=== PATIENT | female | born 1990 | race Caucasian/White ===

== ENCOUNTER 2017-10-01 19:17 | Emergency (ER) | payer BC ==
[2017-10-01] MEDS ORDERED: DEXAMETHASONE 10 MG/ML VIAL ONE (20:15)
--- NOTE | 2017-10-01 21:46 | ER ---
Nurse's Notes [facility] Name: Fabiola Lemus Age: 26 yrs Sex: Female : 1990 Arrival Date: 10/01/2017 Time: 19:20 Bed 19 Private MD: Diagnosis: Acute pharyngitis Presentation: 10/01 19:24 Presenting complaint: Patient states: I was dx with epiglottitis about 4 days ago and la1 given a zpack and steroids and it got better now I am having pain lower in my throat. I have been taking ibuprofen around the clock as well. Transition of care: patient was not received from another setting of care. Onset of symptoms was October 01, 2017. Care prior to arrival: None. 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 - Social history:: Smoking status: Patient uses tobacco products, smokes one-half pack cigarettes per day. Screenin:30 Abuse screen: Denies threats or abuse. Denies injuries from another. Nutritional lp1 screening: No deficits noted. Tuberculosis screening: No symptoms or risk factors identified. Fall Risk None identified. Assessment: 19:40 General: Appears in no apparent distress. Behavior is cooperative, anxious. Pain: lp1 Complains of pain in neck Pain currently is 4 out of 10 on a pain scale. Neuro: Level of Consciousness is awake, alert, obeys commands. Cardiovascular: Patient's skin is warm and dry. Respiratory: Airway is patent Trachea midline Respiratory effort is even, unlabored, Respiratory pattern is regular, symmetrical, Breath sounds are clear bilaterally. GI: Abdomen is non-distended. : No signs and/or symptoms were reported regarding the genitourinary system. EENT: Throat is clear with gag reflex present. Derm: Skin is pink, warm \T\ dry. Musculoskeletal: Circulation, motion, and sensation intact. 20:45 Reassessment: Patient appears in no apparent distress at this time. Patient and/or lp1 family updated on plan of care and expected duration. Pain level reassessed. Patient is alert, oriented x 3, equal unlabored respirations, skin warm/dry/pink. Patient seems to be more calm at this time. Vital Signs: 19:26 BP 131 / 87; Pulse 130; Resp 19; Temp 98.6; Pulse Ox 100% on R/A; Weight 64.41 kg; la1 Height 5 ft. 5 in. (165.10 cm); 19:50 BP 131 / 83; Pulse 100; Resp 16; Pulse Ox 100% on R/A; lp1 20:30 BP 114 / 72; Pulse 88; Resp 16; Pulse Ox 100% on R/A; lp1 21:15 BP 130 / 87; Pulse 87; Resp 16; Pulse Ox 100% on R/A; lp1 19:26 Body Mass Index 23.63 (64.41 kg, 165.10 cm) la1 ED Course: 19:20 Patient arrived in ED. al2 19:25 Triage completed. la1 19:26 Arm band placed on left wrist. la1 19:29 Jennifer Bingham RN is Primary Nurse. lp1 19:34 Brad Gastelum NP is PHCP. pm1 19:34 Kenneth Bartlett MD is Attending Physician. pm1 19:50 Patient has correct armband on for positive identification. Bed in low position. Pulse lp1 ox on. NIBP on. 20:04 Strep swab sent to lab. lp1 21:53 No provider procedures requiring assistance completed. Patient did not have IV access lp1 during this emergency room visit. Administered Medications: 20:00 Drug: Decadron 10 mg Route: IM; Site: right deltoid; lp1 21:54 Follow up: Response: No adverse reaction lp1 Outcome: 21:45 Discharge ordered by . pm1 22:03 Discharged to home ambulatory. lp1 22:03 Condition: good 22:03 Discharge instructions given to patient, Instructed on discharge instructions, follow up and referral plans. Demonstrated understanding of instructions, follow-up care. 22:04 Patient left the ED. lp1 Signatures: Jennifer Bingham, KWADWO BURKETT lp1 Coy Renner RN RN la1 Brad Gastelum NP HOUSING SPECIALIST pm1 Diana Metzger al2
--- NOTE | 2017-10-01 21:46 | EDPHYS ---
Physician Documentation [facility] Name: Fabiola Lemus Age: 26 yrs Sex: Female : 1990 Arrival Date: 10/01/2017 Time: 19:20 Bed 19 Private MD: ED Physician Kenneth Bartlett HPI: 10/01 21:00 This 26 yrs old Female presents to ER via Ambulatory with complaints of Sore pm1 Throat. 21:00 The patient presents with sore throat. The patient describes throat pain as constant, pm1 scratchy. Onset: The symptoms/episode began/occurred 2 week(s) ago. Severity of symptoms: in the emergency department the symptoms have improved. Modifying factors: The symptoms are alleviated by nothing, the symptoms are aggravated by foods, Patient's oral intake status: good Denies contact with similarly ill indivduals. 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 - Social history:: Smoking status: Patient uses tobacco products, smokes one-half pack cigarettes per day. ROS: 21:00 Constitutional: Negative for fever, chills, and weight loss, Eyes: Negative for injury, pm1 pain, redness, and discharge. 21:00 Neck: Negative for injury, pain, and swelling, Cardiovascular: Negative for chest pain, palpitations, and edema, Respiratory: Negative for shortness of breath, cough, wheezing, and pleuritic chest pain, Abdomen/GI: Negative for abdominal pain, nausea, vomiting, diarrhea, and constipation, Back: Negative for injury and pain, : Negative for injury, bleeding, discharge, and swelling, MS/Extremity: Negative for injury and deformity, Skin: Negative for injury, rash, and discoloration, Neuro: Negative for headache, weakness, numbness, tingling, and seizure. 21:00 ENT: Positive for sore throat, Negative for ear pain, rhinorrhea, dental pain. Exam: 21:00 Constitutional: This is a well developed, well nourished patient who is awake, alert, pm1 and in no acute distress. Head/Face: Normocephalic, atraumatic. Eyes: Pupils equal round and reactive to light, extra-ocular motions intact. Lids and lashes normal. Conjunctiva and sclera are non-icteric and not injected. Cornea within normal limits. Periorbital areas with no swelling, redness, or edema. 21:00 Neck: Trachea midline, no thyromegaly or masses palpated, and no cervical lymphadenopathy. Supple, full range of motion without nuchal rigidity, or vertebral point tenderness. No Meningismus. Chest/axilla: Normal chest wall appearance and motion. Nontender with no deformity. No lesions are appreciated. Cardiovascular: Regular rate and rhythm with a normal S1 and S2. No gallops, murmurs, or rubs. Normal PMI, no JVD. No pulse deficits. Respiratory: Lungs have equal breath sounds bilaterally, clear to auscultation and percussion. No rales, rhonchi or wheezes noted. No increased work of breathing, no retractions or nasal flaring. Abdomen/GI: Soft, non-tender, with normal bowel sounds. No distension or tympany. No guarding or rebound. No evidence of tenderness throughout. Back: No spinal tenderness. No costovertebral tenderness. Full range of motion. Skin: Warm, dry with normal turgor. Normal color with no rashes, no lesions, and no evidence of cellulitis. MS/ Extremity: Pulses equal, no cyanosis. Neurovascular intact. Full, normal range of motion. 21:00 ENT: External ear(s): are unremarkable, Ear canal(s): are normal, TM's: are normal, Nose: is normal, Mouth: is normal, Posterior pharynx: Airway: normal, no evidence of obstruction, patent, Tonsils: bilaterally enlarged, with erythema, no exudate, no ulcerations, Uvula: normal, midline, non-edematous, no erythema, peritonsillar mass, is not appreciated, pooling of secretions, is not appreciated. 21:00 Neuro: Orientation: is normal, Motor: moves all fours, strength is normal, strength is 5/5 in all extremities, Sensation: is normal, no obvious gross deficits, Gait: is steady, at a normal pace, without difficulty. Vital Signs: 19:26 BP 131 / 87; Pulse 130; Resp 19; Temp 98.6; Pulse Ox 100% on R/A; Weight 64.41 kg; la1 Height 5 ft. 5 in. (165.10 cm); 19:50 BP 131 / 83; Pulse 100; Resp 16; Pulse Ox 100% on R/A; lp1 20:30 BP 114 / 72; Pulse 88; Resp 16; Pulse Ox 100% on R/A; lp1 21:15 BP 130 / 87; Pulse 87; Resp 16; Pulse Ox 100% on R/A; lp1 19:26 Body Mass Index 23.63 (64.41 kg, 165.10 cm) la1 MDM: 19:35 Patient medically screened. pm1 21:40 ED course: Do not agree with diagnosis of epiglottitis from urgent care. Patient pm1 without fever, difficulty swallowing, drooling, hoarse voice, and stridor. Patient likely with viral pharyngitis. Patient with onset of sore throat two weeks ago that has improved. Patient without any difficulty swallowing food or fluids. Patient with good PO intake. Symptoms improved with ibuprofen at home. . 21:43 Data reviewed: vital signs. Data interpreted: Pulse oximetry: on room air is 100 %. pm1 Interpretation: normal. Counseling: I had a detailed discussion with the patient and/or guardian regarding: the historical points, exam findings, and any diagnostic results supporting the discharge/admit diagnosis, lab results, the need for outpatient follow up, to return to the emergency department if symptoms worsen or persist or if there are any questions or concerns that arise at home. 10/01 19:50 Order name: Strep; Complete Time: 20:49 pm1 10/01 20:28 Order name: Throat Culture EDMS Administered Medications: 20:00 Drug: Decadron 10 mg Route: IM; Site: right deltoid; lp1 21:54 Follow up: Response: No adverse reaction lp1 Disposition: 10/02 01:32 Co-signature as Attending Physician, Kenneth Bartlett MD. pkl Disposition: 10/01/17 21:45 Discharged to Home. Impression: Acute pharyngitis. - Condition is Stable. - Discharge Instructions: Pharyngitis, Salt Water Gargle, Viral Infections, [id number]. - Medication Reconciliation Form, Thank You Letter, Antibiotic Education, Prescription Opioid Use form. - Follow up: Emergency Department; When: As needed; Reason: Worsening of condition. Follow up: Private Physician; When: 2 - 3 days; Reason: Recheck today's complaints, Continuance of care, Re-evaluation by your physician. - Problem is new. - Symptoms have improved. Signatures: Dispatcher [employer] Kenneth Mccloud MD MD pkl Pena, Laura RN RN lp1 Coy Renner RN RN la1 Brad Gastelum, ADEEL FISH FILLETER pm1
== END 2017-10-01 22:04 | disposition home or self-care (01) ==
LOC: ER 19:17
DX: J02.9 Acute pharyngitis, unspecified (principal); F17.210 Nicotine dependence, cigarettes, uncomplicated
CPT/HCPCS: 87070; 87081; 96372; 99284; J1100